=== PATIENT | male | born 1990 | race Caucasian/White ===

== ENCOUNTER 2025-02-09 04:04 | Emergency (ER) | payer SELFPAY ==
[~2025-02-09] VITALS: Ht 188 cm; Wt 131.8 kg
[2025-02-09 04:10] VITALS: TEMP 97.9
[2025-02-09] MEDS ORDERED: CIPR-458 PO (04:25)
[2025-02-09] MEDS ORDERED: BENZ-38 PO (04:25)
--- NOTE | 2025-02-09 04:25 | Physician Documentation ---
History of Present Illness ~ Chief Complaint: Cold, cough & congestion Stated Complaint: CONGESTION Time Seen by MD: 04:15 HPI Patient presents to the emergency room for evaluation of worsening cough. He says the Faustino going on for two weeks and then tonight just got worse. He is also experiencing sinusitis. No fevers Medication Reconciliation Allergies: Coded Allergies: Penicillins (Verified Allergy, Mild, 02/09/25) Review of Systems ROS All review of systems negative except as per HPI Physical Exam Vital Signs: Temperature: 97.9, Source: Oral, Heart Rate: 70, Respiratory Rate: 16, BP: 143/92, Pulse Oximetry: 96, Weight: 131.800 Physical Exam General: Patient is awake, alert, oriented x4 in no acute distress Head: Normocephalic and atraumatic. Eyes: Conjunctival normal. EOMI. PERRL. ENT: Mucous membranes moist. Neck: Supple, trachea is midline. Chest: Clear to auscultation bilaterally without rales, rhonchi, or wheezes. There is no accessory muscle use or retractions. Cardiac: RRR without murmurs, gallops, or rubs. Progress Results/Orders Results/Orders Vital Signs 02/09/25 04:10 Temp 97.9 Pulse 70 Resp 16 B/P (MAP) 143/92 Pulse Ox 96 Medical Decision Making Additional information obtaine: N/A Findings Patient presents to the emergency room for evaluation of worsening cough and sinus pain. Differentials include but are not limited to sinusitis, pneumonia, viral syndrome, CHF, bronchitis. Patient's vitals are stable and he is well- appearing and he had not feel emergent labs or imaging is necessary. We will empirically treat for developing pneumonia. Differential Dx:Considerations: Include: Allergic rhinitis Departure Disposition: HOME / SELF CARE / HOMELESS Impression: Primary Impression: Acute respiratory infection Condition: Stable Discharge Instructions: Acute Bronchitis, Adult Referrals: NO PRIMARY CARE PROVIDER (PCP) Prescriptions Benzonatate* (Benzonatate*) 100 Mg Capsule 1-2 CAP PO Q6H for Cough, #30 CAP Prov: CRAIG BLAS MD 02/09/25 Ciprofloxacin HCl (Ciprofloxacin HCl) 500 Mg Tab 1 TAB PO Q12H for 7 Days, #14 TAB Prov: CRAIG BLAS MD 02/09/25 Signature Scribe Signature: No scribe Attestation: The note accurately reflects work and decisions made by me.Craig Blas MD 02/09/25 04:25 CRAIG BLAS MD Feb 09, 2025 04:25
[2025-02-09] MEDS: ciprofloxacin 250mg tablet PO ONE (04:38)
[2025-02-09 04:43] VITALS: BP 143/92; PULSE 70; RESP 16; O2SAT 95
== END 2025-02-09 04:46 | disposition home or self-care (01) ==
LOC: ER 04:05
DX: J22 Unspecified acute lower respiratory infection (principal); Z88.0 Allergy status to penicillin
CPT/HCPCS: 99283